=== PATIENT | female | born 1960 | race American Indian/Alaskan Native ===

== ENCOUNTER 2021-12-30 12:01 | Emergency (ER) | payer MEDICARE ==
--- NOTE | 2021-12-30 12:44 | Emergency Department Report ---
Blank Doc - Documentation Documentation: 61-year-old female that presents with low abdominal pain with nausea vomiting. 1- This is a initial triage assessment/medical screening only. Full assessment and work-up will be completed once the patient is in proper hospital gown, ED bed and in a private room setting. This initial assessment/diagnostic orders/clinical plan/ treatment(s) is/are subject to change based on pt's health status, clinical progression and re-assessment by fellow clinical providers in the ED. Further treatment and workup at subsequent clinical providers discretion. Patient/guardians urged not to elope from ED as their condition may be serious if not clinically assessed and managed. 2-labs 3-UA The patient was evaluated in the emergency department for symptoms described in the history of present illness. He/she was evaluated in the context of the global COVID-19 pandemic, which necessitated consideration that the patient might be at risk for infection with the virus that causes COVID-19. Institutional protocols and algorithms that pertain to the evaluation of patients at risk for COVID-19 are in a state of rapid change based on information released by regulatory bodies including the CDC and federal and state organizations. These policies and algorithms were followed during the patient's care in the emergency department. Please note that these policies, procedures and recommendations changed on a rapid basis.
[2021-12-30 13:03] LABS: Basophils # (Auto) 0.1 K/mm3 (0.0-0.1); Basophils % (Auto) 1.1 % (0.0-1.8); Eosinophils # (Auto) 0.1 K/mm3 (0.0-0.4); Hematocrit 37.5 % (30.3-42.9); Hemoglobin 12.3 gm/dl (10.1-14.3); Lymphocytes # (Auto) 2.1 K/mm3 (1.2-5.4); Mean Corpuscular HGB Conc 33 % (30-34); Mean Corpuscular Volume 89 fl (79-97); Monocytes # (Auto) 0.4 K/mm3 (0.0-0.8); Monocytes % (Auto) 6.8 % (0.0-7.3); Platelet Count 304 K/mm3 (140-440); Red Blood Count 4.22 M/mm3 (3.65-5.03); Red Cell Distribution Width 15.6 % (13.2-15.2)
[2021-12-30 13:34] LABS: Alanine Aminotransferase 9 units/L (7-56); Albumin 3.9 g/dL (3.9-5); BUN/Creatinine Ratio 18; Blood Urea Nitrogen 16 mg/dL (7-17); Calcium 9.4 mg/dL (8.4-10.2); Hemolysis Index 8
[2021-12-30] MEDS ORDERED: KETOROLAC 10 MG TAB PO ONE (17:07)
[2021-12-30] MEDS ORDERED: NEOMY 3.5 MG/BACIT 400 UNITS/POLY B 5000 UNITS/GM OINT PACKET TP ONE (17:08)
--- NOTE | 2021-12-30 18:12 | Cat Scan Report ---
CT ABDOMEN AND PELVIS WITHOUT CONTRAST INDICATION / CLINICAL INFORMATION: ABDOMINAL PAIN. INFECTION/ SKIN SURFACE LLQ. TECHNIQUE: All CT scans at this location are performed using CT dose reduction for ALARA by means of automated exposure control. COMPARISON: None available. FINDINGS: ABDOMEN: There are several small calcified granulomata in the spleen. There are simple cyst-appearing lesions in the right renal sinus. There is no evidence of renal calculus or hydronephrosis. The live r, gallbladder, bile ducts, pancreas, adrenal glands and bowel demonstrate no significant abnormality . No adenopathy is present. No acute vascular abnormality is seen. There is a small calcified granulo ma in the left lower lobe. PELVIS: The distal ureters and urinary bladder are normal. The uterus and ovaries are not identified. The appendix is not seen. There is no evidence of diverticulitis. No abnormal mass or fluid collecti on is present. There is a tiny fat-containing right inguinal hernia without complication. No visible abnormality is seen involving the skin in the left lower quadrant. There are surgical changes in the lower lumbar spine. No acute osseous abnormality is present. IMPRESSION: No acute abnormality is identified. Signer Name: Anders Narvaez MD Signed: 12/30/2021 6:08 PM Workstation Name: [id number]
[2021-12-30 18:14] LABS: Bilirubin,Urine NEG (Negative); Blood,Urine SM (Negative); Color,Urine Yellow (Yellow); Protein,Urine <15 mg/dL mg/dL (Negative); Urobilinogen,Urine < 2.0 mg/dL (<2.0)
[2021-12-30 18:16] LABS: Bacteria,Urine 1+ /HPF (Negative); Mucus,Urine FEW /HPF
--- NOTE | 2021-12-30 18:32 | Emergency Department Report ---
ED Abdominal Pain HPI - General Chief Complaint: Abdominal Pain Stated Complaint: LOWER ABD PAIN Time Seen by Provider: 12/30/21 12:21 Source: patient Mode of arrival: Ambulatory Limitations: No Limitations - History of Present Illness Initial Comments: 61-year-old black female with a past medical history of hypertension and asthma presents to the emergency department for evaluation of redness and drainage from her hysterectomy scar for the past 2 days. She states that she had the initial surgery 5 years ago but 2 days ago she started to notice redness, irritation, and then purulent drainage coming from area. She denies fever but states that she does have tenderness with any type of palpation to area. She denies injury or trauma. MD Complaint: abdominal pain, other (Drainage from surgical scar) -: Gradual, days(s) (2) Location: suprapubic Radiation: none Migration to: no migration Severity: severe Severity scale (0 -10): 10 Quality: aching Consistency: constant Worsens With: other (Palpation) Associated Symptoms: denies: nausea, vomiting, diarrhea, fever, chills, dysuria, hematemesis, hematochezia, melena, hematuria, anorexia, syncope - Related Data LMP (females 10-50): other (Hysterectomy) Previous Rx's Medication Instructions Recorded Last Taken Type Mupirocin [Bactroban 2%] 1 applic TP BID #1 tube 12/30/21 Unknown Rx Naproxen [Naprosyn] 500 mg PO BID #14 tab 12/30/21 Unknown Rx Allergies Allergy/AdvReac Type Severity Reaction Status Date / Time adhesive tape Allergy Rash Verified 12/30/21 12:24 ED Review of Systems ROS: Stated complaint: LOWER ABD PAIN Other details as noted in HPI Comment: All other systems reviewed and negative Constitutional: denies: chills, fever Eyes: denies: vision change ENT: denies: throat pain, congestion Respiratory: denies: cough, shortness of breath Cardiovascular: denies: chest pain, palpitations Gastrointestinal: abdominal pain. denies: nausea, vomiting, diarrhea, hematemesis, melena, hematochezia Genitourinary: denies: urgency, dysuria Musculoskeletal: denies: back pain Skin: denies: rash, lesions ED Past Medical Hx - Past Medical History Hx Arthritis: Yes (chronic knee pain) Hx Headaches / Migraines: Yes Hx Asthma: Yes Additional medical history: chronic back pain - Surgical History Additional Surgical History: back surgery, hysterectomy - Social History Smoking Status: Current Every Day Smoker - Medications Home Medications: Home Medications Medication Instructions Recorded Confirmed Last Taken Type Mupirocin [Bactroban 2%] 1 applic TP BID #1 tube 12/30/21 Unknown Rx Naproxen [Naprosyn] 500 mg PO BID #14 tab 12/30/21 Unknown Rx ED Physical Exam - General Limitations: No Limitations General appearance: alert, in no apparent distress - Head Head exam: Present: atraumatic, normocephalic - Eye Eye exam: Present: normal appearance. Absent: conjunctival injection - Neck Neck exam: Present: normal inspection. Absent: tenderness, lymphadenopathy - Respiratory Respiratory exam: Present: normal lung sounds bilaterally. Absent: respiratory distress, wheezes, rales, rhonchi, stridor, chest wall tenderness - Cardiovascular Cardiovascular Exam: Present: regular rate, normal heart sounds - GI/Abdominal GI/Abdominal exam: Present: soft, tenderness (To area at the end of surgical scar), normal bowel sounds. Absent: distended, guarding, rebound, rigid - Extremities Exam Extremities exam: Present: normal inspection, normal capillary refill. Absent: pedal edema, joint swelling, calf tenderness - Back Exam Back exam: Present: normal inspection. Absent: CVA tenderness (R), CVA tenderness (L) - Neurological Exam Neurological exam: Present: alert, oriented X3, normal gait - Psychiatric Psychiatric exam: Present: normal affect, normal mood - Skin Skin exam: Present: warm, dry, intact, normal color - Expanded Skin Exam Expanded 1 - This is noted to be the area at the bottom of her surgical scar. Area noted to be erythematous with a small hole in the very bottom draining small amount of purulent fluid. Area warm and tender to palpation. ED Course Vital Signs 12/30/21 12:18 Temperature 98.3 F Pulse Rate 97 H Respiratory 14 Rate O2 Sat by Pulse 98 Oximetry ED Medical Decision Making - Lab Data Result diagrams: 12/30/21 12:50 12/30/21 12:50 - Radiology Data Radiology results: report reviewed, image reviewed CT abdomen and pelvis without contrast: FINDINGS: ABDOMEN: There are several small calcified granulomata in the spleen. There are simple cyst- appearing lesions in the right renal sinus. There is no evidence of renal calculus or hydro nephrosis. The liver, gallbladder, bile ducts, pancreas, adrenal glands and bowel demonstrate no significant abnormality. No adenopathy is present. No acute vascular abnormality is seen. There is a small calcified granuloma in the left lower lobe. PELVIS: The distal ureters and urinary bladder are normal. The uterus and ovaries are not identified. The appendix is not seen. There is no evidence of diverticulitis. No abnormal mass or fluid collection is present. There is a tiny fat-containing right inguinal hernia without complication. No visible abnormality is seen involving the skin in the left lower quadrant. There are surgical changes in the lower lumbar spine. No acute osseous abnormality is present. IMPRESSION: No acute abnormality is identified. - Medical Decision Making 61-year-old black female with a past medical history of hypertension and asthma presents to the emergency department for evaluation of redness and drainage from her hysterectomy scar for the past 2 days. She states that she had the initial surgery 5 years ago but 2 days ago she started to notice redness, irritation, and then purulent drainage coming from area. She denies fever but states that she does have tenderness with any type of palpation to area. She denies injury or trauma. Patient noted to only have pain in the area where incision is erythematous with small amount of drainage. White count within normal limits, and CT scan within normal limits without any collection of fluid or drainage noted. Patient will be discharged home with Bactroban ointment to apply to area and naproxen to use as directed. She is advised to follow-up with her primary care provider for worsening symptoms or if no improvement and return to the emergency department for any concerning symptoms and immediately if she develop fever or increased drainage. She verbalizes understanding of and agreement with plan of care. Critical care attestation.: If time is entered above; I have spent that time in minutes in the direct care of this critically ill patient, excluding procedure time. ED Disposition Clinical Impression: Irritated scar Abdominal tenderness Qualifiers: Abdominal location: unspecified location Presence of rebound: absent Qualified Code(s): R10.819 - Abdominal tenderness, unspecified site Disposition: 01 HOME / SELF CARE / HOMELESS Is pt being admited?: No Does the pt Need Aspirin: No Condition: Stable Instructions: Abdominal Pain (ED), Abdominal Pain, Adult, [id number] Additional Instructions: Use medication as prescribed. Follow-up with your primary care provider if worsening symptoms. Return to the emergency department immediately if you develop fever or increased drainage from area or increased pain. Prescriptions: Mupirocin [Bactroban 2%] 1 applic TP BID #1 tube Naproxen [Naprosyn] 500 mg PO BID #14 tab Referrals: PRUDENCE MCKINNON [Other] - 3-5 Days Time of Disposition: 18:41
[2021-12-30 19:04] VITALS: BP 128/70
== END 2021-12-30 19:03 | disposition home or self-care (01) ==
LOC: ED 12:01
DX: L90.5 Scar conditions and fibrosis of skin (principal); R10.819 Abdominal tenderness, unspecified site; M19.90 Unspecified osteoarthritis, unspecified site; G43.909 Migraine, unspecified, not intractable, without status migrainosus; J45.909 Unspecified asthma, uncomplicated; F17.200 Nicotine dependence, unspecified, uncomplicated; Z91.09 Other allergy status, other than to drugs and biological substances; Z79.899 Other long term (current) drug therapy
CPT/HCPCS: 36415; 74176; 80053; 81001; 83690; 85025; 99284

== ENCOUNTER 2022-02-10 14:49 | Emergency (ER) | payer MEDICARE ==
--- NOTE | 2022-02-10 16:36 | Emergency Department Report ---
ED Chest Pain HPI - General Chief Complaint: Chest Pain Stated Complaint: CHEST PAIN Time Seen by Provider: 02/10/22 16:20 Source: patient, EMS Mode of arrival: Stretcher Limitations: No Limitations - History of Present Illness Initial Comments: 61 yo F with h/o HTn currently on multiple antihypertensive who present with upper left back pain that started this morning. Pt says "I think pulled some muscle". Moving my shoulder upward worsen pain. No fall or trauma reported. No cough, or sob or palpitation reported. No other modifying or associated factors reported. Severity scale (0 -10): 9 - Related Data Previous Rx's Medication Instructions Recorded Last Taken Type Mupirocin [Bactroban 2%] 1 applic TP BID #1 tube 12/30/21 Unknown Rx Naproxen [Naprosyn] 500 mg PO BID #14 tab 12/30/21 Unknown Rx Cyclobenzaprine [Flexeril] 10 mg PO TID PRN 5 Days #15 tab NS 02/10/22 Unknown Rx HYDROcodone/APAP 5-325 [Gardner 1 each PO Q6HR PRN 3 Days #12 02/10/22 Unknown Rx 5/325] tablet NS Allergies Allergy/AdvReac Type Severity Reaction Status Date / Time adhesive tape Allergy Rash Verified 12/30/21 12:24 Heart Score - HEART Score History: Slightly suspicious EKG: Normal Age: 45-65 Risk factors: 1-2 risk factors Troponin: < normal limit HEART Score: 2 - EKG Read Time Time EKG Completed: 16:00 EKG Read Time: 17:00 - Critical Actions Critical Actions: 0-3 pts:0.9-1.7%risk of adverse cardiac event.Candidate for discharge ED Review of Systems ROS: Stated complaint: CHEST PAIN Other details as noted in HPI Comment: All other systems reviewed and negative Respiratory: denies: cough, shortness of breath Cardiovascular: chest pain (left upper back pain ) ED Past Medical Hx - Past Medical History Hx Arthritis: Yes (chronic knee pain) Hx Headaches / Migraines: Yes Hx Asthma: Yes Additional medical history: chronic back pain - Surgical History Additional Surgical History: back surgery, hysterectomy - Social History Smoking Status: Current Every Day Smoker Substance Use Type: None - Medications Home Medications: Home Medications Medication Instructions Recorded Confirmed Last Taken Type Mupirocin [Bactroban 2%] 1 applic TP BID #1 tube 12/30/21 Unknown Rx Naproxen [Naprosyn] 500 mg PO BID #14 tab 12/30/21 Unknown Rx Cyclobenzaprine [Flexeril] 10 mg PO TID PRN 5 Days #15 tab NS 02/10/22 Unknown Rx HYDROcodone/APAP 5-325 [Gardner 1 each PO Q6HR PRN 3 Days #12 02/10/22 Unknown Rx 5/325] tablet NS ED Physical Exam - General Limitations: No Limitations General appearance: alert, in no apparent distress - Head Head exam: Present: normal inspection - Eye Eye exam: Present: normal appearance Pupils: Present: normal accommodation - ENT ENT exam: Present: normal exam, normal orophraynx, mucous membranes moist - Neck Neck exam: Present: normal inspection, full ROM. Absent: tenderness - Respiratory Respiratory exam: Present: normal lung sounds bilaterally, other (noted with tenderness to the left upper back in the area of the rhomboid muscle with no erythema or warmth). Absent: respiratory distress, chest wall tenderness, accessory muscle use - Cardiovascular Cardiovascular Exam: Present: regular rate, normal rhythm, normal heart sounds - GI/Abdominal GI/Abdominal exam: Present: soft, normal bowel sounds. Absent: distended, tenderness - Extremities Exam Extremities exam: Present: normal inspection, normal capillary refill. Absent: tenderness, pedal edema - Back Exam Back exam: Present: normal inspection, tenderness (noted with tenderness to the left upper back in the area of the rhomboid muscle with no erythema or warmth). Absent: muscle spasm, paraspinal tenderness - Neurological Exam Neurological exam: Present: alert, oriented X3 - Psychiatric Psychiatric exam: Present: normal affect, normal mood - Skin Skin exam: Present: warm, normal color ED Course Vital Signs 02/10/22 02/10/22 02/10/22 15:48 16:15 18:02 Temperature 96.7 F L 98.2 F 98.4 F Pulse Rate 100 H 73 74 Respiratory 18 20 18 Rate Blood Pressure 127/66 Blood Pressure 150/100 127/66 127/57 [Left] O2 Sat by Pulse 99 96 100 Oximetry YANNICK score - Yannick Score Age > 65: (0) No Aspirin use within the Past 7 Days: (0) No 3 or more CAD Risk Factors: (0) No 2 or more Angina events in past 24 hrs: (0) No Known CAD with more than 50% Stenosis: (0) No Elevated Cardiac Markers: (0) No ST Deviation Greater than 0.5mm: (0) No YANNICK Score: 0 ED Medical Decision Making - Lab Data Result diagrams: 02/10/22 17:00 02/10/22 17:00 - EKG Data -: EKG Interpreted by Me EKG shows normal: sinus rhythm Rate: normal - EKG Data 02/10/22 17:39 Noted with normal sinus rhythm at a rate of 70 bpm and there is normal ECG. - Medical Decision Making here with chest pain and noted with tenderness to the left upper back in the area of the rhomboid muscle with no erythema or warmth--consistent with likely muscle cause of pain however with this patient history of hypertension on multiple antihypertensive and morbidly obese with raise concern for other differentials such as not limited to myocardial infarction, pulmonary embolism, costochondritis, anxiety, gastritis, GERD, pancreatitis, and or pyelonephritis--in order to rule out the above-- so will go ahead and order routine cardiopulmonary work-up that include troponin, EKG, chest x-ray, BNP, CKMB, and CBC, CMP and urinalysis for any correctable infectious process or electrolyte abnormality as a cause. Given aspirin and morphine for symptomatic relief -- while waiting for above labs Critical care attestation.: If time is entered above; I have spent that time in minutes in the direct care of this critically ill patient, excluding procedure time. ED Disposition Clinical Impression: Rhomboid muscle pain, Non-cardiac chest pain Rhomboid muscle strain Qualifiers: Encounter type: initial encounter Qualified Code(s): S29.012A - Strain of muscle and tendon of back wall of thorax, initial encounter Disposition: HOME / SELF CARE / HOMELESS Is pt being admited?: No Does the pt Need Aspirin: No Condition: Stable Instructions: How to Use Cold Therapy, [id number], Muscle Strain, Easy-to- Read, Nonspecific Chest Pain, Adult, [id number] Additional Instructions: Take your pain medication as prescribed to continue to help your symptoms Ice application for 15 to 20 minutes every 2-4 hours for the next 72 hours to help with your pain Call and follow up with your doctor in 3-5 days for progress Please do not hesitate to call or return to ED if your symptoms worsen Prescriptions: Cyclobenzaprine [Flexeril] 10 mg PO TID PRN 5 Days #15 tab NS PRN Reason: Muscle Spasm HYDROcodone/APAP 5-325 [Gardner 5/325] 1 each PO Q6HR PRN 3 Days #12 tablet NS PRN Reason: Pain Referrals: SCOTT MORA MD [Referring] - 3-5 Days Time of Disposition: 17:46
[2022-02-10] MEDS ORDERED: ASPIRIN 81 MG TAB CHEW PO ONE (16:42)
[2022-02-10] MEDS: MORPHINE 4 MG/1 ML INJ IV ONE ×2 (17:08→19:19)
--- NOTE | 2022-02-10 17:14 | XRay Report ---
CHEST 1 VIEW 02/10/2022 4:53 PM INDICATION / CLINICAL INFORMATION: Chest Pain. COMPARISON: None available. FINDINGS: SUPPORT DEVICES: None. HEART / MEDIASTINUM: No significant abnormality. LUNGS / PLEURA: No significant pulmonary or pleural abnormality. No pneumothorax. ADDITIONAL FINDINGS: No significant additional findings. IMPRESSION: 1. No acute findings. Signer Name: Pierre Castillo MD Signed: 02/10/2022 5:09 PM Workstation Name: [id number]
[2022-02-10 17:21] LABS: Basophils # (Auto) 0.1 K/mm3 (0.0-0.1); Basophils % (Auto) 0.8 % (0.0-1.8); Eosinophils # (Auto) 0.3 K/mm3 (0.0-0.4); Eosinophils % (Auto) 4.1 % (0.0-4.3); Hemoglobin 12.2 gm/dl (10.1-14.3); Lymphocytes % (Auto) 27.1 % (13.4-35.0); Mean Corpuscular HGB Conc 33 % (30-34); Mean Corpuscular Volume 90 fl (79-97); Monocytes # (Auto) 0.4 K/mm3 (0.0-0.8); Monocytes % (Auto) 5.8 % (0.0-7.3); Platelet Count 268 K/mm3 (140-440); Red Blood Count 4.12 M/mm3 (3.65-5.03); Red Cell Distribution Width 15.7 % (13.2-15.2)
[2022-02-10 17:46] LABS: Alanine Aminotransferase 6 units/L (7-56); Albumin 4.1 g/dL (3.9-5); BUN/Creatinine Ratio 10; Blood Urea Nitrogen 11 mg/dL (7-17); Calcium 9.1 mg/dL (8.4-10.2); Hemolysis Index 21
[2022-02-10] MEDS ORDERED: MORPHINE 2 MG/1 ML INJ IM ONE (17:49)
[2022-02-10 17:52] LABS: INR 0.91 (0.87-1.13)
[2022-02-10 17:53] LABS: Partial Thromboplastin Time 25.2 Sec. (24.2-36.6)
[2022-02-10 18:03] VITALS: BP 127/57
--- NOTE | 2022-02-11 16:58 | Electrocardiograph Report ---
[facility] Test Date: 2022-02-10 Test Time: 17:13:13 Pat Name: NEYDA DILLON Department: Room: Gender: F [employer]: MARILYN : 1960 Requested By: SHANON KRAMER Order Number: [id number] Reading MD: Radha Ndiaye Measurements Intervals [place] Rate: 70 P: -29 MI: 194 QRS: 3 QRSD: 92 T: 27 QT: 378 QTc: 409 Interpretive Statements Sinus rhythm No previous ECG available for comparison Electronically Signed On 02-11-2022 16:57:44 EDT by Radha Ndiaye
== END 2022-02-10 18:02 | disposition home or self-care (01) ==
LOC: ED 14:49
DX: S29.012A Strain of muscle and tendon of back wall of thorax, initial encounter (principal); M79.18 Myalgia, other site; R07.9 Chest pain, unspecified; M19.90 Unspecified osteoarthritis, unspecified site; G43.909 Migraine, unspecified, not intractable, without status migrainosus; J45.909 Unspecified asthma, uncomplicated; Z91.09 Other allergy status, other than to drugs and biological substances; F17.200 Nicotine dependence, unspecified, uncomplicated; X58.XXXA Exposure to other specified factors, initial encounter; Y93.89 Activity, other specified; Y92.89 Other specified places as the place of occurrence of the external cause; Y99.8 Other external cause status
CPT/HCPCS: 36415; 71045; 80053; 84484; 85025; 85610; 85730; 93005; 96372; 99284; J2270